=== PATIENT | male | born 2000 | race Caucasian/White ===

== ENCOUNTER 2020-05-09 22:06 | Emergency (ER) | payer OTHER ==
[2020-05-10 00:12] VITALS: BP 128/78
[2020-05-10] MEDS ORDERED: SILVER NITRATE APPLICATOR TOP STA (01:23)
--- NOTE | 2020-05-10 01:41 | ED Physician Documentation ---
History of Present Illness - Stated complaint Stated Complaint: FINGER LAC - Chief complaint Chief Complaint: Laceration - History obtained from History obtained from: Patient - Additonal information Additional information: Pt comes to the emergency department complaining of an avulsion injury to his left middle finger. He states he was using a knife, which slipped, and sheared off the skin and tissue, and it won't stop bleeding. No loss of movement of the finger. No other complaints at this time. Review of Systems Ten Systems: 10 systems reviewed and negative Constitutional: reports: Reviewed and negative Eyes: reports: Reviewed and negative Ears: reports: Reviewed and negative Nose: reports: Reviewed and negative Throat: reports: Reviewed and negative Cardiac: reports: Reviewed and negative Respiratory: reports: Reviewed and negative GI: reports: Reviewed and negative : reports: Reviewed and negative Skin: reports: Laceration (s) Musculoskeletal: reports: Reviewed and negative Neurologic: reports: Reviewed and negative Psychiatric: reports: Reviewed and negative Endocrine: reports: Reviewed and negative Immunocompromised: reports: Reviewed and negative PD PAST MEDICAL HISTORY - Past Medical History Past Medical History: No - Past Surgical History Past Surgical History: No - Present Medications Home Medications: Ambulatory Orders Medication Instructions Recorded Confirmed No Known Home Medications 05/09/20 05/09/20 - Allergies Allergies/Adverse Reactions: Allergies Allergy/AdvReac Type Severity Reaction Status Date / Time No Known Drug Allergies Allergy Verified 05/09/20 22:18 - Social History Does the pt smoke?: No Smoking Status: Never smoker Does the pt drink ETOH?: No Does the pt have substance abuse?: No - Immunizations Immunizations are current?: Yes - POLST Patient has POLST: No PD ED PE NORMAL - Vitals Vital signs reviewed: Yes - General General: Alert and oriented X 3, No acute distress, Well developed/nourished - HEENT HEENT: Atraumatic, PERRL, EOMI, Moist mucous membranes - Neck Neck: Supple, no meningeal sign - Cardiac Cardiac: Strong equal pulses - Respiratory Respiratory: No respiratory distress - Abdomen Abdomen: Normal bowel sounds, Soft, Non tender, Non distended - Derm Derm: Normal color, Warm and dry, Other (1.5 cm diam. skin avulsion over dorsal L middle finger germinal matrix. Nail not involved. Tiny, brisk arteriolar bleed. No FB.) - Extremities Extremities: No deformity, Other (Full ROM/strength at L middle finger DIP to resistance.) - Neuro Neuro: Alert and oriented X 3 - Psych Psych: Normal mood, Normal affect Results - Vitals Vitals: Oxygen O2 Source Room air PD MEDICAL DECISION MAKING - ED course Complexity details: considered differential, d/w patient ED course: Pt's wound was not suturable, but did need better hemostasis. I held pressure for several minutes to slow the bleeding, then applied silver nitrate and gelfoam with good results. Finger was dressed in the ED. We have discussed home management of the wound, including that pt should not remove the Gelfoam, but let it come off on its own when the wound has healed enough.We have discussed the proper way to hold pressure on a wound, as well as the usual indications for return. Departure - Departure Disposition: 01 Home, Self Care Clinical Impression: Soft tissue avulsion Condition: Stable Instructions: ED Avulsion Dermal Discharge Date/Time: 05/10/20 01:55
== END 2020-05-10 01:55 | disposition home or self-care (01) ==
LOC: ED 22:06
DX: S61.203A Unspecified open wound of left middle finger without damage to nail, initial encounter (principal); W26.0XXA Contact with knife, initial encounter; Y93.89 Activity, other specified
CPT/HCPCS: 99282